=== PATIENT | male | born 1985 | race Caucasian/White ===

== ENCOUNTER 2019-12-23 10:49 | Inpatient (IN) | payer OTHER ==
[~2019-12-23 10:49] MED LIST: Dexamethasone 20 MG/5 ML VIAL ONE; EPHEDRINE 25 MG/5 ML SYRINGE ONE; Lidocaine 1% PF 5 ML VIAL ONE; Ondansetron PF 4 MG/2 ML Vial ONE; PHENYLEPHRINE-NS 100 MCG/ML 10 ML SYRINGE ONE; PROPOFOL 200 MG/20 ML VIAL ONE
[2019-12-23] MEDS ORDERED: Fentanyl 100 MCG/2 ML VIAL ONE ×5 (10:55→18:58)
[2019-12-23] MEDS ORDERED: Adacel (T-DAP) 0.5 ML SYRINGE ONE (10:55)
[2019-12-23] MEDS ORDERED: CEFAZOLIN 1 GM VIAL ONE (10:55)
[2019-12-23 11:07] LABS: #Basophils 0.1 thou/uL (0.0-0.2); #Eosinphils 0.3 thou/uL (0.0-0.7); #Lymphocytes 2.6 thou/uL (1.20-3.40); #Monocytes 0.7 thou/uL (0.11-0.59); %Basophils 0.8 % (0.0-1.0); %Eosinophils 4.3 % (0.0-10.0); %Lymphocytes 38.7 % (21.0-51.0); %Monocytes 10.7 % (0.0-10.0); %Neutrophils 45.5 % (42.0-75.0); Hemoglobin 15.4 g/dL (14.0-18.0); Mean Corpuscular HGB CONC 34.7 g/dL (32.0-36.0); Mean Corpuscular Hemoglobin 31.3 pg (27.0-31.0); Mean Corpuscular Volume 90.1 fL (78.0-98.0); Mean Platelet Volume 8.7 fL (7.4-10.4); Platelet Count 238 thou/uL (130-400); RBC Distribution Width 11.8 % (11.5-14.5); Red Blood Cell (RBC) Count 4.91 mill/uL (4.70-6.10); White Blood Cell (WBC) Count 6.7 thou/uL (4.8-10.8)
[2019-12-23] MEDS ORDERED: Morphine 4 MG/ML VIAL ONE ×2 (11:24→14:10)
[2019-12-23] MEDS ORDERED: Ondansetron PF 4 MG/2 ML Vial ONE (11:25)
[2019-12-23] MEDS ORDERED: Lidocaine 1% w/Epinephrine 1:100K 20 ML VIAL ONE (11:25)
[2019-12-23] MEDS ORDERED: Bupivacaine 0.5% 10 ML VIAL ONE (11:28)
[2019-12-23 11:33] LABS: PTT 25.4 SEC (22.9-36.1); Prothrombin Time 12.8 SEC (12.0-14.7)
[2019-12-23 11:35] LABS: ALT (SGPT) 35 U/L (8-55); AST (SGOT) 27 U/L (5-34); Albumin 4.2 g/dL (3.5-5.0); Alkaline Phosphatase 61 U/L (40-110); Anion Gap 13 mmol/L (10-20); BUN (Urea Nitrogen) 12 mg/dL (8.9-20.6); Bilirubin, Total 2.4 mg/dL (0.2-1.2); Calc. Creatinine Clearance 0 mL/min (70-130); Calcium 9.3 mg/dL (7.8-10.44); Carbon Dioxide 25 mmol/L (22-29); Chloride 104 mmol/L (98-107); Estimated GFR-MDRD 75; Globulin 2.5 g/dL (2.4-3.5); Glucose 144 mg/dL (70-105); Lipase 36 U/L (8-78); Potassium 3.4 mmol/L (3.5-5.1); Protein, Total 6.7 g/dL (6.0-8.3); Sodium 139 mmol/L (136-145)
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
[2019-12-23] MEDS ORDERED: Dextrose 50% Abboject 50 ML SYRINGE SLOW IVP PRN (13:54)
[2019-12-23] MEDS ORDERED: Ondansetron ODT 4 MG TAB PO PRN (13:54)
[2019-12-23] MEDS ORDERED: Ondansetron PF 4 MG/2 ML Vial IVP PRN (13:54)
[2019-12-23] MEDS ORDERED: hydrALAZINE 20 MG/ML VIAL SLOW IVP PRN (13:54)
[2019-12-23] MEDS ORDERED: Morphine 4 MG/ML VIAL SLOW IVP PRN (13:54)
[2019-12-23] MEDS ORDERED: Dextrose 5% in Water 1,000 ML IV PRN (13:54)
[2019-12-23] MEDS ORDERED: Morphine 2 MG/ML SYRINGE SLOW IVP PRN (13:54)
[2019-12-23] MEDS ORDERED: traMADol HCl 50 MG TAB PO PRN ×2 (13:58)
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
[2019-12-23] MEDS ORDERED: Iopamidol-370 76% 500 ML 1 ML ONE (15:22)
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
[2019-12-23] MEDS ORDERED: Neomycin-Polymyxin 1 ML AMP ONE (16:24)
[2019-12-23] MEDS ORDERED: Midazolam HCl 2 mg/2 ml Vial ONE (16:40)
[2019-12-23] MEDS ORDERED: Meperidine HCl/PF 25 MG/ML VIAL ONE (18:39)
[2019-12-23] MEDS ORDERED: Promethazine HCl 25 MG/ML VIAL SLOW IVP PRN (18:46)
[2019-12-23] MEDS ORDERED: Morphine Sulfate 2 MG/ML SYRINGE SLOW IVP PRN (18:46)
[2019-12-23] MEDS ORDERED: PACU-Morphine 4MG/ML VIAL SLOW IVP PRN (18:46)
[2019-12-23] MEDS ORDERED: Promethazine HCl 25 MG/ML VIAL IM PRN (18:46)
[2019-12-23] MEDS ORDERED: HYDROmorphone 2 MG/ML VIAL SLOW IVP PRN (18:46)
[2019-12-23] MEDS ORDERED: Ondansetron HCl/PF 4 MG/2 ML Vial IVP PRN (18:46)
[2019-12-23] MEDS ORDERED: Meperidine HCl/PF 25 MG/ML VIAL SLOW IVP PRN ×2 (18:46)
[2019-12-23] MEDS ORDERED: Ketorolac Tromethamine 30 MG/ML VIAL IVP PRN (18:46)
[2019-12-23] MEDS ORDERED: Ketorolac Tromethamine 30 MG/ML VIAL ONE (19:35)
[2019-12-23] MEDS: CEFAZOLIN 2 GM in Premix Bag 1 BAG IVPB SCH (20:32)
[2019-12-23 20:34] VITALS: BMI 29.7
[2019-12-23] MEDS: Sodium Chloride 0.9% 1,000 ML IV SCH ×2 (20:48→23:05)
[2019-12-23] MEDS: Ketorolac Tromethamine 30 MG/ML VIAL IVP SCH (20:49)
[2019-12-23] MEDS: Acetaminophen 500 MG TAB PO SCH ×2 (20:49→21:00)
[2019-12-23] MEDS: Morphine 4 MG/ML VIAL SLOW IVP PRN (20:59)
[2019-12-23] MEDS: Senokot S 8.6-50 MG TAB PO SCH (21:01)
[2019-12-23 23:15] LABS: CK (CPK) 178 U/L (30-200); Magnesium 1.6 mg/dL (1.6-2.6); Phosphorus 2.6 mg/dL (2.3-4.7)
[2019-12-24] MEDS: Ketorolac Tromethamine 30 MG/ML VIAL IVP SCH ×3 (00:05→11:29)
[2019-12-24] MEDS: Morphine 4 MG/ML VIAL SLOW IVP PRN ×4 (00:12→07:29)
[2019-12-24] MEDS ORDERED: Potassium Phosphate 30 MMOL in Sodium Chloride 0.9% 500 ML IVPB SCH ×2 (01:45→03:15)
[2019-12-24] MEDS ORDERED: Magnesium 2 GM/50 ML 2 GM in Premix Bag 1 BAG IVPB SCH (01:45)
[2019-12-24] MEDS: Acetaminophen 500 MG TAB PO SCH (02:17)
[2019-12-24] MEDS ORDERED: Acetaminophen 500 MG TAB PO SCH (04:22)
[2019-12-24] MEDS ORDERED: Cyclobenzaprine 10 MG TAB PO PRN (04:22)
[2019-12-24] MEDS ORDERED: Acetaminophen/Codeine 30-300mg Tablet PO PRN ×2 (04:22)
[2019-12-24] MEDS: Acetaminophen 325 MG TAB PO SCH ×3 (04:35→16:16)
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
[2019-12-24 05:31] LABS: #Lymphocytes 0.7 thou/uL (1.20-3.40); #Monocytes 0.8 thou/uL (0.11-0.59); #Neutrophils 9.9 thou/uL (1.40-6.50); %Basophils 0.1 % (0.0-1.0); %Eosinophils 0.1 % (0.0-10.0); %Lymphocytes 6.3 % (21.0-51.0); %Monocytes 7.1 % (0.0-10.0); %Neutrophils 86.4 % (42.0-75.0); Hemoglobin 13.4 g/dL (14.0-18.0); Mean Corpuscular HGB CONC 35.7 g/dL (32.0-36.0); Mean Corpuscular Hemoglobin 32.2 pg (27.0-31.0); Mean Corpuscular Volume 90.2 fL (78.0-98.0); Mean Platelet Volume 9.1 fL (7.4-10.4); Platelet Count 195 thou/uL (130-400); RBC Distribution Width 11.6 % (11.5-14.5); Red Blood Cell (RBC) Count 4.17 mill/uL (4.70-6.10); White Blood Cell (WBC) Count 11.4 thou/uL (4.8-10.8)
[2019-12-24] MEDS: Sodium Chloride 0.9% 1,000 ML IV SCH (05:36)
[2019-12-24 05:53] LABS: Anion Gap 14 mmol/L (10-20); BUN (Urea Nitrogen) 13 mg/dL (8.9-20.6); Calc. Creatinine Clearance 157 mL/min (70-130); Calcium 8.8 mg/dL (7.8-10.44); Carbon Dioxide 22 mmol/L (22-29); Chloride 107 mmol/L (98-107); Estimated GFR-MDRD 84; Glucose 147 mg/dL (70-105); Magnesium 2.2 mg/dL (1.6-2.6); Phosphorus 2.8 mg/dL (2.3-4.7); Potassium 4.5 mmol/L (3.5-5.1); Sodium 138 mmol/L (136-145)
[2019-12-24] MEDS ORDERED: Polyethylene Glycol 3350 17 GM Packet PO SCH (09:00)
[2019-12-24] MEDS ORDERED: TETANUS AND DIPHTHERIA TOX/PF 0.5 ML DISP.SYRIN IM ONE (09:00)
[2019-12-24] MEDS: Senokot S 8.6-50 MG TAB PO SCH (09:14)
--- NOTE | 2019-12-24 10:16 | CT ---
CT Upper Ext Rt WO Con History: Injury Comparison: Radiograph hand prior day Findings: There is a fractured laterally displaced lateral hallux sesamoid at the thumb metacarpal ph alangeal joint. There is a comminuted intra-articular fracture of the middle finger metacarpal base at the carpometac arpal joint with dorsal displacement one half shaft width and foreshortening 7-8mm. There is a comminuted fracture of the trapezoid for which the second metacarpal base is impacted. The fourth met acarpal base is intact. There is a small avulsion flake of bone along the medial margin of the fifth metacarpal base. The distal radius is intact. The ulna is intact. Impression: Multifocal comminuted intra-articular fractures described as well as radial thumb metacar pal phalangeal joint sesamoid injury.
[2019-12-24] MEDS ORDERED: Ibuprofen 600 MG TAB PO SCH (14:00)
[2019-12-24 16:01] VITALS: BP 131/84; TEMP 98.5
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
== END 2019-12-24 18:02 | disposition home or self-care (01) | DRG 502 ==
LOC: ERS 10:49 → SDC 14:06 → SURG B 20:15
PROVIDERS: ADMIT Surgery; ATTEND Surgery
PROC: 0KQ70ZZ Repair Right Upper Arm Muscle, Open Approach (ICD-10-PCS; principal; 2019-12-23)
PROC: 0JBJ0ZZ Excision of Right Hand Subcutaneous Tissue and Fascia, Open Approach (ICD-10-PCS; 2019-12-23)
PROC: 2W3EX1Z Immobilization of Right Hand using Splint (ICD-10-PCS; 2019-12-23)
DX: S62.91XA Unspecified fracture of right hand, initial encounter for closed fracture (principal); S51.021A Laceration with foreign body of right elbow, initial encounter; S66.901A Unspecified injury of unspecified muscle, fascia and tendon at wrist and hand level, right hand, initial encounter; V89.2XXA Person injured in unspecified motor-vehicle accident, traffic, initial encounter
CPT/HCPCS: 36415; 70450; 71260; 72125; 74177; 76000; 80048; 80053; 82550; 83605; 83690; 83735; 84100; 85025; 85610; 85730; 86850; 86900; 86901; 90471; 90715; 96365; 96375; 96376; G0390; J0690; J1100; J1885; J2001; J2175; J2250; J2270; J2405; J2704; J3010; J3475; J3490; J7050; Q9967

== ENCOUNTER 2020-01-01 05:50 | Observation (INO) | payer OTHER ==
[2019-12-31 12:43] VITALS: BMI 29.7
[2020-01-01] MEDS ORDERED: Fentanyl 100 MCG/2 ML VIAL ONE ×3 (06:20→10:37)
[2020-01-01] MEDS ORDERED: Midazolam HCl 2 mg/2 ml Vial ONE ×2 (06:20→06:33)
[2020-01-01] MEDS ORDERED: Bacitracin Zinc Ointment 30 gm TUBE ONE (06:36)
[2020-01-01] MEDS ORDERED: Bupivacaine PF 0.5% 30 ML VIAL ONE ×2 (06:36→06:51)
[2020-01-01] MEDS ORDERED: traMADol HCl 50 MG TAB PO PRN ×2 (07:45)
[2020-01-01] MEDS ORDERED: HYDROcodone/Acetaminophen 10/325 mg Tablet PO PRN ×2 (07:45→08:38)
[2020-01-01] MEDS ORDERED: Ketorolac Tromethamine 30 MG/ML VIAL IVP PRN (07:45)
[2020-01-01] MEDS ORDERED: Acetaminophen 325 MG TAB PO PRN ×2 (07:45→08:38)
[2020-01-01] MEDS ORDERED: Promethazine HCl 25 MG/ML VIAL IM PRN ×3 (07:45→10:41)
[2020-01-01] MEDS ORDERED: Zolpidem Tartrate 5 MG TAB PO PRN (07:45)
[2020-01-01] MEDS ORDERED: Ropivacaine 0.2% 550 ML 550 ML NERVE BLCK SCH (07:45)
[2020-01-01] MEDS ORDERED: Ondansetron PF 4 MG/2 ML Vial IVP PRN (07:45)
[2020-01-01] MEDS ORDERED: Fentanyl 100 MCG/2 ML VIAL IV PRN (07:46)
[2020-01-01] MEDS ORDERED: Bisacodyl 10 MG SUPP PR PRN (08:38)
[2020-01-01] MEDS ORDERED: HYDROcodone/Acetaminophen 5/325 mg Tablet PO PRN (08:38)
[2020-01-01] MEDS ORDERED: Ondansetron PF 4 MG/2 ML Vial IV PRN (08:38)
[2020-01-01] MEDS ORDERED: Acetaminophen/Codeine 30-300mg Tablet PO PRN (08:38)
[2020-01-01] MEDS ORDERED: Milk Of Magnesia 30 ML UDCUP PO PRN (08:38)
[2020-01-01] MEDS ORDERED: Morphine 4 MG/ML VIAL SLOW IVP PRN (08:38)
[2020-01-01] MEDS ORDERED: Meperidine HCl/PF 25 MG/ML VIAL IM PRN (08:43)
[2020-01-01] MEDS ORDERED: PHARMACY TO RENALLY ADJUST ABX FS SCH (08:45)
[2020-01-01] MEDS ORDERED: TETANUS AND DIPHTHERIA TOX/PF 0.5 ML DISP.SYRIN IM SCH (08:45)
[2020-01-01] MEDS ORDERED: Vancomycin 1 GM in Premix Bag 1 BAG IVPB SCH (09:00)
[2020-01-01] MEDS ORDERED: Promethazine HCl 25 MG/ML VIAL SLOW IVP PRN (10:41)
[2020-01-01] MEDS ORDERED: Ondansetron HCl/PF 4 MG/2 ML Vial IVP PRN (10:41)
[2020-01-01] MEDS ORDERED: HYDROmorphone 2 MG/ML VIAL SLOW IVP PRN (10:41)
[2020-01-01] MEDS ORDERED: Ketorolac Tromethamine 30 MG/ML VIAL IVP SCH (12:00)
[2020-01-01] MEDS ORDERED: Ropivacaine 0.2% HCl/PF (40 MG/20 ML VIAL) ONE (12:35)
[2020-01-01] MEDS ORDERED: PROPOFOL 200 MG/20 ML VIAL ONE (12:35)
[2020-01-01] MEDS ORDERED: Lidocaine 1% PF 5 ML VIAL ONE (12:35)
[2020-01-01] MEDS ORDERED: Bupivacaine HCl 0.5%/Epinephrine 1:200,000/PF 30 ml Vial ONE (12:35)
[2020-01-01] MEDS ORDERED: Dexamethasone 20 MG/5 ML VIAL ONE ×2 (12:35)
[2020-01-01] MEDS ORDERED: Ondansetron PF 4 MG/2 ML Vial ONE (12:35)
[2020-01-01] MEDS ORDERED: Ketorolac Tromethamine 30 MG/ML VIAL ONE (12:35)
[2020-01-01] MEDS ORDERED: Ropivacaine 0.5% HCl/PF (150 MG/30 ML VIAL) ONE (12:35)
[2020-01-01] MEDS: Aspirin 81 mg Enteric Coated Tablet PO SCH ×2 (13:19→20:23)
[2020-01-01] MEDS: Sodium Chloride 0.9% 1,000 ML IV SCH (13:29)
--- NOTE | 2020-01-01 13:43 | RAD ---
RIGHT HAND THREE VIEW: 01/01/20 HISTORY: ORIF. COMPARISON: CT 01/01/20. FINDINGS: Multiple images were obtained from the operating room. Multiple wires and compression screws are in p lace. IMPRESSION: Satisfactory postoperative appearance. POS: [facility]
[2020-01-01] MEDS: HYDROcodone/Acetaminophen 10/325 mg Tablet PO PRN (23:09)
[2020-01-02] MEDS: Sodium Chloride 0.9% 1,000 ML IV SCH ×2 (00:55→06:11)
[2020-01-02] MEDS: HYDROcodone/Acetaminophen 10/325 mg Tablet PO PRN ×2 (05:32→10:25)
[2020-01-02] MEDS: Aspirin 81 mg Enteric Coated Tablet PO SCH (09:48)
[2020-01-02 10:01] LABS: Vancomycin, Trough 44.2 ug/mL
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
[2020-01-02] MEDS ORDERED: Ketorolac Tromethamine 30 MG/ML VIAL IVP SCH (12:00)
[2020-01-02 12:18] VITALS: BP 142/89; TEMP 98.3
--- NOTE | 2020-01-04 08:16 | OP ---
DATE OF PROCEDURE: 01/01/2020 PREOPERATIVE DIAGNOSES: 1. Right carpometacarpal joint 2nd dislocation. 2. Right 3rd carpometacarpal joint dislocation. 3. Displaced middle finger metacarpal base fracture. 4. Middle finger displaced and comminuted trapezium fracture. 5. Nondisplaced 5th metacarpal fracture. POSTOPERATIVE DIAGNOSES: 1. Right carpometacarpal joint 2nd dislocation. 2. Right 3rd carpometacarpal joint dislocation. 3. Displaced middle finger metacarpal base fracture. 4. Middle finger displaced and comminuted trapezium fracture. 5. Nondisplaced 5th metacarpal fracture. PROCEDURES PERFORMED: 1. Closed reduction with splinting, small finger right metacarpal base fracture. 2. Right third carpometacarpal joint dislocation and internal fixation with K-wires. 3. Open reduction and internal fixation of second carpometacarpal joint dislocation with K-wires. 4. Open reduction and internal fixation of middle phalanx metacarpal fracture with screws, lag. 5. Open reduction and internal fixation with bone grafting trapezoid via the comminuted intra-articular fracture with marked collapse. TOURNIQUET TIME: 119 minutes (first tourniquet 22 minutes, then a 40 minute gap, and then reinflated at 97 minutes, all at 250 mmHg). DESCRIPTION OF PROCEDURE: After successful general endotracheal anesthesia, limb was prepped and draped. The patient also had a preoperative block of the lower extremity and the upper extremity. After the prep and drape that involved both the hand, upper extremity, he underwent ipsilateral peroneal tendon reconstruction at the posterior inferior /lateral malleolus. We then were able to inflate the tourniquet, we re-inflated it during the foot procedure, then returned for 97 minutes of procedure after the foot was complete. We used an extensive incision, carried through skin and subcutaneous tissue until we reached the patient's extensor tendons. We saw and retracted from the center of the field and dissected free the superficial radial nerve branches and then made a capsular incision in his third carpometacarpal joint. We reduced it nearly anatomically and pinned it from the ulnar side into the bone. It did not move. We then were able to inspect the joint. It was clean, but from here we were able to pass a [place] around posteriorly to reduce and hold it reduced with a clamp. His palmar fragment which took up approximately 40% of his articular suface. We then placed 2 lag screws and 1 K-wire to hold this in place. We also were able to visualize the capitate metacarpal joint which was without bone or callus. We then made a small longitudinal opening in the index finger, carpometacarpal joint, reduced it where it had been shortened, pinned it to the middle finger metacarpal and confirmed no gross motion in the frontal and sagittal plane and radiographically it was in good position. We then carried the incision further down by the trapezoid, saw it was in 4 large pieces with comminution between the edges, bone grafted with 30 mL cancellous bone graft, and then used a provisional fixation of 2 K-wires and 1 lag screw. This gave excellent coaptation of the joint despite the fact that some of the ulnar particles were missing. Tourniquet was deflated. Hemostasis was obtained. The fascia and were reapproximated with #1 Vicryl. Two 3-0 Vicryl interrupted patterns were used to close the epidermis after we obtained hemostasis, and the dermis was closed with . Dermis closure was accomplished with 4-0 nylon interrupted mattress pattern over several selected interrupted deep Vicryls. The patient left the operating room without evidence of anesthetic or operative complication. Job ID: [id number]
== END 2020-01-02 14:56 | disposition home or self-care (01) ==
LOC: SDC 05:50 → SURG B 08:43
PROVIDERS: ADMIT Orthopaedic Surgery Hand Surgery; ATTEND Orthopaedic Surgery Hand Surgery
PROC: 0LQV0ZZ Repair Right Foot Tendon, Open Approach (ICD-10-PCS; principal; 2020-01-02)
PROC: 0PSM04Z Reposition Right Carpal with Internal Fixation Device, Open Approach (ICD-10-PCS; 2020-01-02)
PROC: 0PSP04Z Reposition Right Metacarpal with Internal Fixation Device, Open Approach (ICD-10-PCS; 2020-01-02)
DX: S93.01XA Subluxation of right ankle joint, initial encounter (principal); S62.312A Displaced fracture of base of third metacarpal bone, right hand, initial encounter for closed fracture; S62.306A Unspecified fracture of fifth metacarpal bone, right hand, initial encounter for closed fracture; S63.054A Dislocation of other carpometacarpal joint of right hand, initial encounter
CPT/HCPCS: 36415; 76000; 80202; 96361; 96365; 96366; 96376; A4306; C1713; G0378; J0670; J0690; J1100; J1885; J2001; J2250; J2405; J2704; J2795; J3010; J3370; J3490; J7050; S0020

== ENCOUNTER 2020-01-26 06:34 | Day surgery (SDC) | payer OTHER ==
[2020-01-25 14:17] VITALS: BMI 29.7
[2020-01-26] MEDS ORDERED: Midazolam HCl 2 mg/2 ml Vial ONE (08:01)
[2020-01-26] MEDS ORDERED: Fentanyl 100 MCG/2 ML VIAL ONE ×2 (08:51→09:37)
[2020-01-26] MEDS ORDERED: Dexamethasone 4 mg/ml Vial ONE (08:52)
[2020-01-26] MEDS ORDERED: Bacitracin Zinc Ointment 30 gm TUBE ONE (09:16)
[2020-01-26] MEDS ORDERED: Sodium Chloride 0.9% 10 ML ONE (10:24)
[2020-01-26] MEDS ORDERED: Ketorolac Tromethamine 30 MG/ML VIAL ONE (12:28)
[2020-01-26] MEDS ORDERED: Succinylcholine Chloride 20 MG/ML 10 ml SYRINGE FS ONE (12:28)
[2020-01-26] MEDS ORDERED: PROPOFOL 200 MG/20 ML VIAL ONE (12:28)
[2020-01-26] MEDS ORDERED: Ropivacaine 0.5% HCl/PF (150 MG/30 ML VIAL) ONE (12:28)
[2020-01-26] MEDS ORDERED: Rocuronium Bromide 10 MG/ML (10ML VIAL) ONE (12:28)
[2020-01-26] MEDS ORDERED: Ondansetron PF 4 MG/2 ML Vial ONE (12:28)
[2020-01-26] MEDS ORDERED: Dexamethasone 20 MG/5 ML VIAL ONE (12:28)
[2020-01-26] MEDS ORDERED: Ropivacaine 0.2% HCl/PF (40 MG/20 ML VIAL) ONE (12:28)
[2020-01-26] MEDS ORDERED: Lidocaine 1% PF 5 ML VIAL ONE (12:28)
--- NOTE | 2020-01-26 13:40 | RAD ---
RIGHT HAND RADIOGRAPHS THREE VIEWS: Date: 01-26-2020 Provided Clinical History: Fracture fixation. FINDINGS: Comparison 01-01-2020. Pinning of second and third metacarpal base fractures as well as the second and third CMC joints is d emonstrated. Soft tissue gas is seen. IMPRESSION: As above. POS: MYNOR
--- NOTE | 2020-01-26 13:56 | RAD ---
Radiograph right wrist 3 views: DATE: 01/26/2020 12:16 PM HISTORY: 34-year-old male with acute, traumatic, intra-articular fractures of carpal and metacarpal bones of t he right hand and wrist. FINDINGS: A total of 9 small [id number] fluoroscopic spot images obtained with C-arm in the OR demonstrate n umerous short metallic pins overlying the base of the third metacarpal, and overlying the region of the trapezium and trapezoid, overlapping with distal pole of scaphoid. Additional 2 long K wires late r traverse the second CMC joint with distal tips overlying trapezium and hamate. IMPRESSION: Ongoing pin fixation of acute, traumatic intra-articular fractures of carpal bones and metacarpal bas e.
[2020-01-26] MEDS ORDERED: Promethazine HCl 25 MG/ML VIAL IM PRN (14:29)
[2020-01-26] MEDS ORDERED: Zolpidem Tartrate 5 MG TAB PO PRN (14:29)
[2020-01-26] MEDS ORDERED: Ondansetron PF 4 MG/2 ML Vial IVP PRN (14:29)
[2020-01-26] MEDS ORDERED: Ropivacaine 0.2% 550 ML 550 ML NERVE BLCK SCH (14:29)
[2020-01-26] MEDS ORDERED: HYDROcodone/Acetaminophen 5/325 mg Tablet ONE (14:51)
--- NOTE | 2020-01-27 09:30 | OP ---
DATE OF PROCEDURE: 01/26/2020 PREOPERATIVE DIAGNOSIS: Previous carpometacarpal joint dislocation with open treatment two and a half weeks ago, second x-rays postop revealed migration of wires with loss of fixation at the index finger carpometacarpal joint, especially the trapezoid, which appears to be very dorsal. INTRATOPERATIVE FINDINGS: 1. Metacarpal to trapezoid and trapezoid to scaphoid subluxations. 2. Early healing of metacarpal fracture, 3rd sagittal plane. PROCEDURES PERFORMED: 1. Open reduction and internal fixation of index finger carpometacarpal joint. 2. Pinning of index finger to capitate for stability. 3. Re-pinning of third carpometacarpal joint. TOURNIQUET TIME: 120 minutes. BLOOD LOSS: Approximately 50 mL DESCRIPTION OF PROCEDURE: After successful general endotracheal anesthesia, the limb was prepped and draped. The patient had a block along with the general, we identified the right side and took radiographs, which confirmed what we saw in clinic and then the patient had the limb exsanguinated, tourniquet inflated to 250 mmHg pressure. We used the same incision he had before, carried through skin and subcutaneous tissue, the subcutaneous tissue from the joint capsule. We preserved the extensor carpi radialis insertions and immediately we inspected the 3rd carpometacarpal joint and saw the position now changed, where approximately 2 mm x 1 mm triangular-shaped boss proximally. We then began to try to manipulate the index finger and realized that we could not without removing the K-wire on the 3rd carpometacarpal joint, so we had removed that leaving it in a subluxed position. During manipulation, we just had finished visualizing the fact that the trapezoid had lost approximately 1 mm height, but the bone graft, both articular sides were intact, but it was approximately 50% dorsal on the index finger and about 25% dorsal on the scaphoid. We out the scaphoid trapezoid capsule, STT joint, it from the capitate ridge, and then we reduced the index finger metacarpal to its ridge on the radial aspect of the capitate just proximal to the 3rd carpometacarpal joint and held this with two 0.045 K-wire. We were just about to re-pin the 3rd carpometacarpal joint when we felt a crunch. We performed radiographs and realized that the fracture in the sagittal plane had , so we began to repair this. At this point, we released the tourniquet. We then re-repaired the 3rd metacarpal base intra-articular fracture, where it was nearly anatomical in the frontal sagittal plane. We saw the joint. , we also saw the same carpal boss as seen before and felt that we achieved adequate reduction and then used a K-wire and 2 screws in a lag technique using Synthes modular handset (variable angle handset) 1.5 screws. At this point, we then reduced this joint, with only a 1 mm dorsal prominence at the 3rd carpometacarpal joint and pinned this. This allowed us then to reduce the index finger to its height and palmar location in the sagittal plane and we pinned it to its ridge on the capitate. The capitate was never subluxed or dislocated in its articular surface, although showing evidence of chondromalacia, was still intact. We then freed the scaphotrapezoid and trapezoid old index joint, reduced it by almost 3-4 mm palmarly and then pinned it with a wire to the index finger metacarpal. No fracture was seen in the index finger metacarpal and trapezoid maintained its position after it had been already internally fixed. We irrigated the area. We obtained hemostasis. The ECRs were intact on the metacarpal base of the 3rd metacarpal. We then repaired the intermetacarpal ligament between the index and the middle finger metacarpal, closed the remnant of the capsule over the capitate to the index finger and the capitate to the middle finger. We obtained hemostasis. The capsule repair was done with a heavy 3-0 Prolene. We then used 0 Vicryl to repair the remainder of the capsule proximal to the scaphoid trapezoid articulation. We then performed radiographs all throughout this time including the C-arm and before we cut the wires, and even in the middle of the procedure, we brought a portable x-ray so that we could obtain reverse views to properly visualize the scaphoid trapezoid joint and the index finger joint. The wires were cut flush with the bone, we then kept hemostasis, performed subcutaneous closure with a running 4-0 Monocryl and the skin was reapproximated with 4-0 nylon in a simple pattern. The patient left the operating room with a sugar-tong splint. No evidence of anesthetic or operative complication. Job ID: [id number]
== END 2020-01-26 16:32 | disposition home or self-care (01) ==
LOC: SDC 06:34
PROVIDERS: ATTEND Orthopaedic Surgery Hand Surgery
PROC: 0PSM04Z Reposition Right Carpal with Internal Fixation Device, Open Approach (ICD-10-PCS; principal; 2020-01-26)
DX: S63.061A Subluxation of metacarpal (bone), proximal end of right hand, initial encounter (principal); S62.18 Fracture of trapezoid [smaller multangular]; S62.310B Displaced fracture of base of second metacarpal bone, right hand, initial encounter for open fracture; S62.312B Displaced fracture of base of third metacarpal bone, right hand, initial encounter for open fracture; S62.316B Displaced fracture of base of fifth metacarpal bone, right hand, initial encounter for open fracture; Z87.891 Personal history of nicotine dependence
CPT/HCPCS: 76000; A4306; C1713; J0690; J1100; J1885; J2001; J2250; J2405; J2704; J2795; J3010; J3370

== ENCOUNTER 2020-06-10 05:44 | Day surgery (SDC) | payer OTHER ==
[2020-06-08 13:02] VITALS: BMI 29.9
[2020-06-10] MEDS ORDERED: Bacitracin Zinc Ointment 30 gm TUBE ONE (06:17)
[2020-06-10] MEDS ORDERED: Sodium Chloride 0.9% 10 ML ONE (06:17)
[2020-06-10] MEDS ORDERED: Betamet Acet/Betamet Na Ph 30 MG/5 ML VIAL ONE (06:17)
[2020-06-10] MEDS ORDERED: Bupivacaine PF 0.5% 30 ML VIAL ONE ×2 (06:17→09:29)
[2020-06-10] MEDS ORDERED: Fentanyl 100 MCG/2 ML VIAL ONE ×2 (06:24→06:50)
[2020-06-10] MEDS ORDERED: Midazolam HCl 2 mg/2 ml Vial ONE ×2 (06:25→06:50)
[2020-06-10] MEDS ORDERED: Ketorolac Tromethamine 30 MG/ML VIAL ONE ×2 (10:40→11:28)
[2020-06-10] MEDS ORDERED: HYDROcodone/Acetaminophen 5/325 mg Tablet ONE (11:13)
--- NOTE | 2020-06-10 11:27 | RAD ---
RIGHT HAND 2 VIEWS: Date: 06/10/2020 HISTORY: Right hand hardware removal. COMPARISON: 03/30/2020. FINDINGS: Recent open reduction and internal fixation changes with removal of some of the hardware pins and scr ews with evidence for placement of a cable at the base of the second and third metacarpals. IMPRESSION: Postop changes with some hardware removal. POS: RRE
[2020-06-10] MEDS ORDERED: Lidocaine 1% PF 5 ML VIAL ONE (11:28)
[2020-06-10] MEDS ORDERED: Dexamethasone 20 MG/5 ML VIAL ONE (11:28)
[2020-06-10] MEDS ORDERED: PROPOFOL 200 MG/20 ML VIAL ONE (11:28)
[2020-06-10] MEDS ORDERED: Ondansetron PF 4 MG/2 ML Vial ONE (11:28)
--- NOTE | 2020-06-13 08:48 | OP ---
DATE OF PROCEDURE: 06/10/2020 PREOPERATIVE DIAGNOSES: 1. Right second carpometacarpal joint subluxation, specifically sub-inferiorly and slightly dorsal. 2. Painful CMC wires of second and third carpometacarpal joint. 3. Second and third metacarpal separation. POSTOPERATIVE DIAGNOSES: 1. Right second carpometacarpal joint subluxation, specifically sub-inferiorly and slightly dorsal. 2. Painful CMC wires of second and third carpometacarpal joint. 3. Second and third metacarpal separation. PROCEDURES PERFORMED: 1. Removal of carpometacarpal joint wires, third and second carpometacarpal joint. 2. Open reduction and internal fixation using a TightRope, second and third metacarpal via the TightRope, C-arm supervision. SPECIMENS: None. ESTIMATED BLOOD LOSS: 10 mL. TOURNIQUET TIME: 89 minutes. INDICATION FOR PROCEDURE: The patient had had multiple metacarpal and carpal fractures that had healed and it was time to remove the wires. At that point, on last radiographs, we feel that the index finger to trapezoid articulation had healed to each other, but the entire ray had subluxed proximally and was approximately 20% dorsally . It appeared to have union of the fracture. Indications were to restore the length of that ray in relation to the second metacarpal and the element index finger, ulnar base to the capitate. DESCRIPTION OF PROCEDURE: After successful general endotracheal anesthesia, the limb was prepped and draped. C-arm was brought to the field to confirm diagnosis. We also then exsanguinated the limb, inflated tourniquet to 250 mmHg pressure, gave him a 30 mL of 0.5% Marcaine block infiltrated all aspects of the incision, along with the superficial ulnar nerve, superficial radial nerve courses. We then used the central 2/3 of his incision, carried through skin and subcutaneous tissue. We identified the extensor carpi radialis tendons, and spared them. We then used the C-arm to find the second metacarpal to trapezium and the third metacarpal to capitate wires. We removed these wires only. At this point, we then used Cataumet and blunt dissection, slowly the trapezium from the scaphoid articulation preserving the dorsal capsule and realized the trapezium and the index finger metacarpal moved as one once we the trapezium from the scaphoid and from the capitate. We could elevate the base of the index finger metacarpal to its position in relation to the capitate. So, we dissected the radial aspect of the base of the metacarpal of the index finger, made an incision over the interosseous membrane to visualize the ulnar side of the middle finger metacarpal and then began at approximately 5 mm from the base, passed a TightRope wire appropriate angle from the second metacarpal base to achieve it in the center of the third metacarpal shaft, just at the diaphyseal widening point to avoid the joint. This was successful. We then opened the interosseous membrane more, reached and pulled the wire part way through and then attached the suture with the first side of TightRope anchor mechanism. Then, placed a second TightRope, the distal sided TightRope anchor mechanism, 2 sutures, then pulled the joint out to maximal length with the help of the recruiting assistant and with slight dorsiflexion of wrist held it reduced while I tied the TightRope in excellent tension against the bone on both sides of the TightRope Then we no subluxation inferiorly, no click, no clunk, and clinically and radiographically, the trapezoid seemed more reduced. We did not need to remove any other wires as they were not loose. They did not visualize protruding on the palmar aspect or the dorsal aspect so we left them. The trapezoid fracture has healed. We obtained hemostasis and deflated the tourniquet. We repaired the dorsal capsule over the space between the trapezium and trapezoid and trapezoid and scaphoid. We then covered them with bulky dressing after we closed the dermis and epidermis. There was no evidence of anesthetic or operative complications at this point. Job ID: [id number]
== END 2020-06-10 12:00 | disposition home or self-care (01) ==
LOC: SDC 05:44
PROVIDERS: ATTEND Orthopaedic Surgery Hand Surgery
PROC: 0RSS04Z Reposition Right Carpometacarpal Joint with Internal Fixation Device, Open Approach (ICD-10-PCS; principal; 2020-06-10)
DX: S63.051A Subluxation of other carpometacarpal joint of right hand, initial encounter (principal); S63.061A Subluxation of metacarpal (bone), proximal end of right hand, initial encounter; T84.84XA Pain due to internal orthopedic prosthetic devices, implants and grafts, initial encounter; Z87.891 Personal history of nicotine dependence
CPT/HCPCS: 76000; C1713; J0690; J0702; J1100; J1885; J2250; J2405; J2704; J3010; J3490; S0020

== ENCOUNTER 2020-07-26 15:41 | Outpatient (CLI) | payer OTHER ==
[2020-07-27 16:06] LABS: SARS-CoV-2 MS2 Positive; SARS-CoV-2 N Gene Negative; SARS-CoV-2 S Gene Negative; SARS-CoV-2 by NAA Not Detected (NotDetected); SARS-CoV-2 orf1ab Negative
== END 2020-07-26 15:42 | disposition home or self-care (01) ==
LOC: LABBT 15:41
PROVIDERS: ATTEND Orthopaedic Surgery
DX: S93.04XA Dislocation of right ankle joint, initial encounter (principal); Z20.828 Contact with and (suspected) exposure to other viral communicable diseases
CPT/HCPCS: 87635; U0003

== ENCOUNTER 2020-07-29 05:58 | Day surgery (SDC) | payer OTHER ==
[2020-07-28 09:52] VITALS: BMI 29.3
[2020-07-29] MEDS ORDERED: Neomycin-Polymyxin 1 ML AMP ONE (06:55)
[2020-07-29] MEDS ORDERED: Fentanyl 100 MCG/2 ML VIAL ONE ×3 (07:09→08:32)
[2020-07-29] MEDS ORDERED: Midazolam HCl 2 mg/2 ml Vial ONE (07:18)
[2020-07-29] MEDS ORDERED: Bupivacaine HCl 0.5%/Epinephrine 1:200,000/PF 30 ml Vial ONE (07:41)
[2020-07-29] MEDS ORDERED: Meperidine HCl/PF 25 MG/ML VIAL ONE (08:18)
[2020-07-29] MEDS ORDERED: Labetalol HCl 100 MG/20 ML VIAL ONE (08:32)
[2020-07-29] MEDS ORDERED: HYDROcodone/Acetaminophen 5/325 mg Tablet ONE (09:15)
--- NOTE | 2020-07-29 09:31 | OP ---
DATE OF PROCEDURE: 07/29/2020 PROCEDURE PERFORMED: Irrigation and debridement of right ankle wound. PREOPERATIVE DIAGNOSIS: Recurrent right ankle wound with possible infection. POSTOPERATIVE DIAGNOSIS: Recurrent right ankle wound with possible infection. COMPLICATIONS: None. ESTIMATED BLOOD LOSS: Minimal. IMPLANTS: None. INDICATIONS: Samy is a 35-year-old male who has had recurrent inflammation and wound problems regarding the right ankle. He had a peroneal tendon dislocation repair several months ago. He has been indicated for I and D to prevent further wound complications, prevent infection, and explore the wound. DESCRIPTION OF PROCEDURE: Samy was identified in the preoperative holding area. His correct extremity was marked. He was carried to the operating room. He was positioned supine. General anesthesia was induced. A multidisciplinary time-out was performed. The right lower extremity was prepped and draped in sterile fashion. We began the procedure by making an incision over the patient's inflamed ankle. We dissected down and found granulating tissue, which was curetted. We cultured this. At the bed of the primary area of inflammation was an Ethibond suture, which was somewhat loosened in the wound. This was removed. We then made a secondary incision over the primary incision line from his previous surgery. Again, we found several Ethibond sutures, which were near the skin, attempting to be spit from the wound. These were removed. We thoroughly irrigated with copious lavage. We then closed with #3-0 nylon suture. A sterile dressing was applied. The patient was taken to the recovery room at this point in good condition. Job ID: [id number]
[2020-07-29] MEDS ORDERED: PROPOFOL 200 MG/20 ML VIAL ONE (11:33)
[2020-07-29] MEDS ORDERED: Lidocaine 1% PF 5 ML VIAL ONE (11:33)
[2020-07-29] MEDS ORDERED: Ondansetron PF 4 MG/2 ML Vial ONE (11:33)
== END 2020-07-29 09:50 | disposition home or self-care (01) ==
LOC: SDC 05:58
PROVIDERS: ATTEND Orthopaedic Surgery
PROC: 0JBN0ZZ Excision of Right Lower Leg Subcutaneous Tissue and Fascia, Open Approach (ICD-10-PCS; principal; 2020-07-29)
DX: T81.41XA Infection following a procedure, superficial incisional surgical site, initial encounter (principal); B95.62 Methicillin resistant Staphylococcus aureus infection as the cause of diseases classified elsewhere; Z87.891 Personal history of nicotine dependence
CPT/HCPCS: 87070; 87077; 87186; 87205; J0690; J2175; J2250; J2405; J2704; J3010

== ENCOUNTER 2020-09-20 06:48 | Outpatient (CLI) | payer OTHER ==
[2020-09-21 02:57] LABS: SARS-CoV-2 MS2 Positive; SARS-CoV-2 N Gene Negative; SARS-CoV-2 S Gene Negative; SARS-CoV-2 by NAA Not Detected (NotDetected); SARS-CoV-2 orf1ab Negative
== END 2020-09-20 06:49 | disposition home or self-care (01) ==
LOC: LABBT 06:48
PROVIDERS: ATTEND Orthopaedic Surgery
DX: Z01.812 Encounter for preprocedural laboratory examination (principal); Z20.828 Contact with and (suspected) exposure to other viral communicable diseases; T81.49XD Infection following a procedure, other surgical site, subsequent encounter
CPT/HCPCS: 87635; U0003

== ENCOUNTER 2020-09-23 05:56 | Day surgery (SDC) | payer OTHER ==
[2020-09-22 13:14] VITALS: BMI 31.2
[2020-09-23] MEDS ORDERED: Midazolam HCl 2 mg/2 ml Vial ONE (07:11)
[2020-09-23] MEDS ORDERED: Ketamine 50 MG/ML (10ML VIAL) ONE (07:11)
[2020-09-23] MEDS ORDERED: Fentanyl 100 MCG/2 ML VIAL ONE ×3 (07:11→09:15)
[2020-09-23] MEDS ORDERED: PROPOFOL 200 MG/20 ML VIAL ONE (09:50)
[2020-09-23] MEDS ORDERED: Ketorolac Tromethamine 30 MG/ML VIAL ONE (09:50)
[2020-09-23] MEDS ORDERED: Ondansetron PF 4 MG/2 ML Vial ONE (09:50)
[2020-09-23] MEDS ORDERED: Dexamethasone 20 MG/5 ML VIAL ONE (09:50)
[2020-09-23] MEDS ORDERED: Lidocaine 1% PF 5 ML VIAL ONE (09:50)
[2020-09-23] MEDS ORDERED: HYDROcodone/Acetaminophen 5/325 mg Tablet ONE (11:13)
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
--- NOTE | 2020-09-28 08:26 | PQF ---
[facility] POST DISCHARGE CLINICAL DOCUMENTATION IMPROVEMENT CLARIFICATION FORM Todays Date: 09/28/20 Patients Name LATA HARRISON Admit Date 09/23/20 Disch Date 09/23/20 Business Team Leader Name Osman Jensen Email: Cell: [phone] To be completed by Business Team Leader: Present Clinical Indicators - Signs / Symptoms Results and Location in Medical Record [ ] Documentation of: [ ] [ ] Documentation of: [ ] [ ] Documentation of: [ ] [ ] Documentation of: [ ] [ ] Risks [ ] [ ] [ ] Treatment [ ] Right lateral ankle foreign body reaction Query for area (sq cm) and depth (subq, fascia, etc.) of debridement for R ankle wound [ ] [ ] To be completed by Physician: DIDIER BERG The documentation in this patients record requires clarification to ensure coding compliance and accuracy. Check the appropriate box and include in your discharge summary. [ ] [ ] [ ] [ ] Please check this box if this does not apply to this patient [ x] Unable to determine [ ] Other diagnosis: Review the following information and exercise your independent professional judgment in responding to the clarification. Based upon the clinical findings, risk factors, and treatment, please clarify if you are treating one of the above probable or suspected diagnoses. Physician Signature: Date Time MTDD
== END 2020-09-23 11:40 | disposition home or self-care (01) ==
LOC: SDC 05:56
PROVIDERS: ATTEND Orthopaedic Surgery
PROC: 0SCF0ZZ Extirpation of Matter from Right Ankle Joint, Open Approach (ICD-10-PCS; principal; 2020-09-23)
DX: T81.31XA Disruption of external operation (surgical) wound, not elsewhere classified, initial encounter (principal); T81.41XA Infection following a procedure, superficial incisional surgical site, initial encounter; B95.62 Methicillin resistant Staphylococcus aureus infection as the cause of diseases classified elsewhere; Z87.891 Personal history of nicotine dependence; Z79.899 Other long term (current) drug therapy
CPT/HCPCS: 87070; 87077; 87186; 87205; J0690; J1100; J1885; J2250; J2405; J2704; J3010

== ENCOUNTER 2021-01-12 09:34 | Outpatient (CLI) | payer OTHER | END 2021-01-12 09:35 | disposition home or self-care (01) | LOC: ULT 09:34 | PROVIDERS: ATTEND Family Medicine | DX: R10.9 Unspecified abdominal pain (principal) | CPT/HCPCS: 93975 ==